=== PATIENT | female | born 1985 | race Caucasian/White ===

== ENCOUNTER 2016-08-20 10:35 | Emergency (ER) | payer MEDICAID ==
[~2016-08-20] VITALS: Ht 175.3 cm; Wt 81.6 kg
[2016-08-20 10:35] VITALS: BP 138/88; PULSE 91; RESP 18; TEMP 97.6; O2SAT 100
[~2016-08-20 10:35] MED LIST: PREN1TAB49 PO
--- NOTE | 2016-08-20 10:35 | NUR ---
Assisted out of private auto into w/c placed in room 5 urine preg negative IC pass
[2016-08-20] MEDS ORDERED: IBUPROFEN 800 MG TABLET PO ONE (10:45)
--- NOTE | 2016-08-20 10:45 | NUR ---
Dr. Diaz at bedside for evaluation
--- NOTE | 2016-08-20 11:24 | NUR ---
Attempted to medicate pt with Motrin per Dr. Diaz's order pt refusing Motrin requesting "stronger" medication
--- NOTE | 2016-08-20 11:26 | NUR ---
Dr. Diaz notified of request for a different pain medication
--- NOTE | 2016-08-20 11:28 | NUR ---
care endorsed to Bella ROBERTS
[2016-08-20] MEDS ORDERED: KETOROLAC TROMETHAMINE 60 MG/2 ML VIAL IM ONE (11:30)
--- NOTE | 2016-08-20 12:00 | NUR ---
Pt. medicated as per MD orders about to discharge as per MD orders but pt. requested to speak to the physician, notified
[2016-08-20 12:40] VITALS: BP 127/71; PULSE 69; RESP 18; TEMP 98.6; O2SAT 100
--- NOTE | 2016-08-20 12:40 | NUR ---
Patient given written and verbal discharge instructions and verbalizes understanding. ER MD dr. black discussed with patient the results and treatment provided. Patient in stable condition. ID arm band removed. Rx of motrin and tramadol given. Patient educated on pain management and to follow up with PMD. Pain Scale 2/10 Opportunity for questions provided and answered.
== END 2016-08-20 12:40 | disposition home or self-care (01) ==
LOC: SED 10:35
DX: S93.402A Sprain of unspecified ligament of left ankle, initial encounter (principal); S83.8X2A Sprain of other specified parts of left knee, initial encounter; W18.39XA Other fall on same level, initial encounter; Y93.89 Activity, other specified; Y92.89 Other specified places as the place of occurrence of the external cause; Y99.8 Other external cause status
CPT/HCPCS: 29505; 73564; 73610; 96372; 99284; J1885

== ENCOUNTER 2017-02-10 11:40 | Emergency (ER) | payer MEDICAID ==
[~2017-02-10] VITALS: Ht 175.3 cm; Wt 56.7 kg
[2017-02-10 11:47] VITALS: BP_SYST 125
[2017-02-10] MEDS ORDERED: KETOROLAC TROMETHAMINE 60 MG/2 ML VIAL IM ONE (12:00)
[2017-02-10] MEDS ORDERED: DEXAMETHASONE SOD PHOSPHATE 10 MG/ML VIAL IM ONE (12:00)
[2017-02-10 13:30] LABS: BILIRUBIN,URINE NEGATIVE (NEGATIVE); BLOOD, URINE NEGATIVE (NEGATIVE); CLARITY/URINE CLEAR (CLEAR); COLOR,URINE YELLOW (YELLOW); GLUCOSE,URINE NEGATIVE (NEGATIVE); KETONES,URINE NEGATIVE (NEGATIVE); LEUKOCYTE ESTERASE ,URINE NEGATIVE (NEGATIVE); NITRITE, URINE NEGATIVE (NEGATIVE); PROTEIN URINE NEGATIVE (NEGATIVE); UROBILINOGEN,URINE 0.2 (0.2-1.0)
[2017-02-10 13:38] LABS: BENZODIAZEPINE, URINE POSITIVE (NEG <=150); CANNABINOID, URINE POSITIVE (NEG <=50); OPIATE, URINE POSITIVE (NEG <=100)
[2017-02-10 13:39] LABS: BARBITURATE, URINE NEGATIVE (NEG <=200); COCAINE, URINE NEGATIVE (NEG <=150); METHAMPHETAMINES SCREEN,URINE NEGATIVE (NEG <=500); PHENCYCLIDINE SCREEN,URINE NEGATIVE (NEG <=25); UR TRICYCLIC ANTIDEPRESSANTS NEGATIVE (NEG <=300); URINE AMPHETAMINE NEGATIVE (NEG <=500); URINE METHADONE NEGATIVE (NEG <=200); URINE OXYCODONE SCREEN NEGATIVE (NEG <=100); URINE PROPOXYPHENE SCREEN NEGATIVE (NEG <=300)
[2017-02-10 14:14] VITALS: BP_SYST 116
== END 2017-02-10 14:14 | disposition home or self-care (01) ==
LOC: SED 11:40
DX: G89.29 Other chronic pain (principal); M54.5 Low back pain
CPT/HCPCS: 80307; 81003; 96372; 99284; J1100; J1885

== ENCOUNTER 2017-02-13 16:06 | Emergency (ER) | payer MEDICAID ==
[~2017-02-13] VITALS: Ht 175.3 cm; Wt 95.3 kg
[2017-02-13 16:16] VITALS: BP_SYST 142
[2017-02-13] MEDS ORDERED: HYDROmorphone 2 MG/ML VIAL IM ONE ×2 (17:30→18:45)
[2017-02-13] MEDS ORDERED: ONDANSETRON 4 MG ODT TAB PO ONE ×2 (17:45→18:45)
[2017-02-13] MEDS ORDERED: BACITRACIN 1 GM OINT TP ONE (18:50)
[2017-02-13 19:00] VITALS: BP_SYST 135
== END 2017-02-13 19:00 | disposition home or self-care (01) ==
LOC: SED 16:06
DX: G89.18 Other acute postprocedural pain (principal); Z98.890 Other specified postprocedural states
CPT/HCPCS: 96372; 96374; 99284; J1170; Q0162

== ENCOUNTER 2018-02-20 08:02 | Emergency (ER) | payer MEDICAID ==
[~2018-02-20] VITALS: Ht 175.3 cm; Wt 95.3 kg
[2018-02-20 08:02] VITALS: BP_SYST 144
[2018-02-20] MEDS ORDERED: KETOROLAC TROMETHAMINE 60 MG/2 ML VIAL IM ONE (08:15)
[2018-02-20] MEDS ORDERED: MORPHINE 2 MG/ML INJ. SYRINGE IVP ONE (09:15)
[2018-02-20 10:06] VITALS: BP_SYST 126
== END 2018-02-20 10:06 | disposition home or self-care (01) ==
LOC: SED 08:02
DX: S39.012A Strain of muscle, fascia and tendon of lower back, initial encounter (principal); S29.012A Strain of muscle and tendon of back wall of thorax, initial encounter; V80.010A Animal-rider injured by fall from or being thrown from horse in noncollision accident, initial encounter; Y93.89 Activity, other specified; Y92.89 Other specified places as the place of occurrence of the external cause; Y99.8 Other external cause status
CPT/HCPCS: 72072; 72100; 81025; 96374; 96375; 99284; J1885; J2270

== ENCOUNTER 2019-02-28 13:18 | Emergency (ER) | payer MEDICAID ==
[~2019-02-28] VITALS: Ht 180.3 cm; Wt 94.8 kg
[2019-02-28] MEDS ORDERED: BALANCED SALT IRRIG SOLN 15 ML IO ONE (13:19)
[2019-02-28] MEDS ORDERED: TETRACAINE HCL/PF 0.5% OPHTHALMIC DROPS 4 ML OP ONE (13:19)
[2019-02-28] MEDS ORDERED: FLUORESCEIN SODIUM 1 MG OPHTHALMIC STRIP OP ONE (13:19)
[2019-02-28 13:25] VITALS: BP_SYST 144
--- NOTE | 2019-02-28 13:25 | NUR ---
Patient to ER bed 06 to gown for evaluation. Side rails up.
--- NOTE | 2019-02-28 13:26 | NUR ---
Patient is awake, alert, and oriented x4. Patient is complaining of severe left eye pain and blurry since yesterday morning and nausea today. Patient denies having to use glasses.
--- NOTE | 2019-02-28 13:30 | NUR ---
ER EDA Chisholm examining patient.
[2019-02-28] MEDS ORDERED: METOCLOPRAMIDE HCL 10 MG/2 ML VIAL IVP ONE (13:45)
[2019-02-28] MEDS ORDERED: NACL 0.9% 1,000 ML IV ONE (13:45)
[2019-02-28] MEDS ORDERED: KETOROLAC TROMETHAMINE 30 MG VIAL IVP ONE (13:45)
[2019-02-28] MEDS ORDERED: OFLOXACIN 0.3% OPHTHALMIC DROPS 5 ML OP ONE (14:30)
--- NOTE | 2019-02-28 14:37 | NUR ---
Ocuflox not available in pyxsis. Jaya in pharmacy notified.
--- NOTE | 2019-02-28 15:05 | NUR ---
Patient given written and verbal discharge instructions and verbalizes understanding. ER MD discussed with patient the results and treatment provided. Patient in stable condition. ID arm band removed. IV catheter removed intact and dressing applied, no active bleeding. Rx of polymyxin B, motrin, excedrin migraine, macrobid given. Patient educated on pain management and to follow up with PMD. Pain Scale 4/10, [employer] Kathrine aware. Opportunity for questions provided and answered. Medication side effect fact sheet provided.
[2019-02-28 15:06] VITALS: BP_SYST 134
[2019-02-28 15:07] LABS: BILIRUBIN,URINE NEGATIVE (NEGATIVE); BLOOD, URINE 1+ (NEGATIVE); CLARITY/URINE CLEAR (CLEAR); COLOR,URINE YELLOW (YELLOW); GLUCOSE,URINE NEGATIVE (NEGATIVE); KETONES,URINE NEGATIVE (NEGATIVE); LEUKOCYTE ESTERASE ,URINE TRACE (NEGATIVE); PH,URINE 5.5 (5.0-8.0); PROTEIN URINE NEGATIVE (NEGATIVE)
[2019-02-28 15:08] LABS: NITRITE, URINE NEGATIVE (NEGATIVE); UROBILINOGEN,URINE 0.2 (0.2-1.0)
[2019-02-28 15:40] LABS: BACTERIA,URINE FEW /HPF (None Seen); MUCUS,URINE None Seen /LPF (None Seen); RBC,URINE 0-3 /HPF (0-3)
== END 2019-02-28 15:06 | disposition home or self-care (01) ==
LOC: SED 13:18
DX: S05.02XA Injury of conjunctiva and corneal abrasion without foreign body, left eye, initial encounter (principal); G43.909 Migraine, unspecified, not intractable, without status migrainosus; N39.0 Urinary tract infection, site not specified; R03.0 Elevated blood-pressure reading, without diagnosis of hypertension; X58.XXXA Exposure to other specified factors, initial encounter; Y93.89 Activity, other specified; Y92.89 Other specified places as the place of occurrence of the external cause; Y99.8 Other external cause status
CPT/HCPCS: 81000; 81025; 87086; 96374; 96375; 99283; J1885; J2765; J7030

== ENCOUNTER 2019-03-03 05:47 | Emergency (ER) | payer MEDICAID ==
[~2019-03-03] VITALS: Ht 180.3 cm; Wt 94.8 kg
[2019-03-03 05:59] VITALS: BP_SYST 128
[2019-03-03] MEDS ORDERED: FLUORESCEIN SODIUM 1 MG OPHTHALMIC STRIP OP ONE (06:15)
[2019-03-03] MEDS ORDERED: TETRACAINE HCL/PF 0.5% OPHTHALMIC DROPS 4 ML OP ONE (06:15)
[2019-03-03] MEDS ORDERED: OXYCODONE/ACETAMINOPHEN *10*mg/325 mg TABLET ONE (06:48)
[2019-03-03] MEDS ORDERED: ONDANSETRON 4 MG ODT TAB ONE (06:50)
[2019-03-03] MEDS ORDERED: OXYCODONE/ACETAMINOPHEN *10*mg/325 mg TABLET PO ONE (07:15)
[2019-03-03] MEDS ORDERED: ONDANSETRON 4 MG ODT TAB PO ONE (07:15)
[2019-03-03] MEDS ORDERED: APRACLONIDINE HCL 0.5% EYE DROPS 5 ML OP ONE (07:30)
[2019-03-03] MEDS ORDERED: DIAMOX SEQUELS 500 MG CAPSULE.SA PO ONE (07:30)
[2019-03-03] MEDS ORDERED: TIMOLOL MALEATE 0.25% OPHTHALMIC DROPS 5 ML LEFT EYE ONE (07:30)
[2019-03-03 08:15] LABS: BASOPHILS # (AUTO) 0.1 K/uL (0.0-0.2); BASOPHILS % (AUTO) 0.8 % (0.0-2.0); EOSINOPHILS # (AUTO) 0.1 K/uL (0.0-0.4); EOSINOPHILS % (AUTO) 1.2 % (0.0-4.0); HEMATOCRIT 38.7 % (36-48); HEMOGLOBIN 13.2 g/dL (12.0-16.0); LYMPHOCYTES # (AUTO) 0.8 K/uL (1.0-5.5); MEAN CORPUSCULAR HEMOGLOBIN 33 pg (27-31); MEAN CORPUSCULAR HGB CONC 34 % (32-36); MEAN CORPUSCULAR VOLUME 97 fL (79.0-98.0); MONOCYTES # (AUTO) 0.5 K/uL (0.0-1.0); MONOCYTES % (AUTO) 5.2 % (1.7-9.3); NEUTROPHILS # (AUTO) 7.3 K/uL (1.8-7.7); NEUTROPHILS % (AUTO) 83.8 % (40.0-70.0); PLATELET COUNT (AUTO) 214 K/uL (130-430); RED CELL DISTRIBUTION WIDTH 13.5 % (9.0-15.0); WHITE BLOOD COUNT (AUTO) 8.7 K/uL (4.8-10.8)
[2019-03-03] MEDS ORDERED: MORPHINE 4 MG/ML INJ. SYRINGE IM ONE (08:15)
[2019-03-03 08:27] LABS: CALCIUM 8.7 mg/dL (8.4-11.0); CREATININE 0.89 mg/dL (0.55-1.30); POTASSIUM 4.2 mmol/L (3.5-5.1)
[2019-03-03] MEDS ORDERED: PILOCARPINE 2% OPHTHALMIC DROPS (ISOPTO CARPINE) OP ONE (08:30)
[2019-03-03 08:33] LABS: ALBUMIN 3.5 g/dL (3.4-4.8); TOTAL BILIRUBIN 0.4 mg/dL (0.0-1.0)
[2019-03-03 08:35] LABS: INR 0.9 (0.8-1.2); PROTHROMBIN TIME 9.5 SECS (9.5-12.5)
[2019-03-03 08:56] VITALS: BP_SYST 119
== END 2019-03-03 08:57 | disposition short-term general hospital (02) ==
LOC: SED 05:47
DX: H57.12 Ocular pain, left eye (principal)
CPT/HCPCS: 36415; 70450; 80053; 81025; 85025; 85610; 85730; 96372; 99285; J2270; Q0162

== ENCOUNTER 2023-02-23 15:15 | Emergency (ER) | payer MEDICAID ==
[~2023-02-23] VITALS: Ht 175.3 cm; Wt 122.5 kg
[2023-02-23 15:30] VITALS: BP_SYST 128; PULSE 109; RESP 18; TEMP 98.2; O2SAT 94
[2023-02-23] MEDS ORDERED: NABU-140 PO (17:24)
[2023-02-23] MEDS ORDERED: CLIN-142 PO (17:35)
[2023-02-23 17:45] VITALS: BP_SYST 132; PULSE 85; RESP 18; TEMP 97.8; O2SAT 98
== END 2023-02-23 17:45 | disposition home or self-care (01) ==
LOC: SED 15:15
DX: K02.9 Dental caries, unspecified (principal); K08.89 Other specified disorders of teeth and supporting structures
CPT/HCPCS: 70486-TC; 76376; 99284